=== PATIENT | female | born 1955 | race Caucasian/White ===

== ENCOUNTER 2017-02-06 04:40 | Emergency (ER) | payer OTHER ==
[~2017-02-06] VITALS: Ht 157.5 cm; Wt 95.2 kg
[~2017-02-06 04:40] MED LIST: OMEP20TA39 PO
[2017-02-06 04:47] VITALS: BP 126/63; PULSE 66; RESP 18; TEMP 97.5; O2SAT 94
[2017-02-06] MEDS ORDERED: IMIT50TA PO (04:57)
[2017-02-06] MEDS ORDERED: OMEP20TA PO (04:57)
[2017-02-06 04:59] VITALS: BP 126/63; PULSE 66; RESP 18; TEMP 97.5; O2SAT 97
[2017-02-06] MEDS ORDERED: SODIUM CHLORIDE 0.9% FLUSH 10 ML FLUSH IV FLUSH PRN (05:00)
[2017-02-06 05:01] VITALS: RESP 18; O2SAT 97
[2017-02-06] MEDS ORDERED: KETOROLAC TROMETHAMINE 30 MG/ML (IVP) VIAL IV PUSH ONE (05:15)
[2017-02-06 05:16] LABS: BLOOD, URINE NEG (NEG); GLUCOSE,URINE NEG (NEG); KETONE, URINE NEG (NEG); NITRITE,URINE NEG (NEG)
--- NOTE | 2017-02-06 05:17 | PD ---
HPI Chief Complaint: Flank/Kidney Pain Time Seen by Provider: 05:15 Travel History International Travel<30 days: No Contact w/Intl Traveler<30days: No Traveled to known affect area: No History of Present Illness HPI Patient 61-year-old female presents emergency Department with right flank pain. Patient states she has a history of an obstructing kidney stone and kidney failure and feels similar to this. Patient also states that she's been having the pain on and off for some couple of days now and she attributed to a cough and congestion when she is now over and straining of her muscles while she was coughing. She states that the pain was gradually getting worse and she decided to come in and be seen. She is not followed up with urologist in some time. No nausea no vomiting no diarrhea no blood in the stool. States symptoms been going on for couple days gradually worsening moderate in severity. PFSH Past Medical History Arthritis: Yes Autoimmune Disease: No Heart Rhythm Problems: Yes (MVP) Cancer: No Cardiovascular Problems: Yes High Cholesterol: Yes Cerebrovascular Accident: Yes Diminished Hearing: No Endocrine: Yes Gastrointestinal Disorders: No Genitourinary: Yes Immune Disorder: No Implanted Vascular Access Dvce: No Kidney Stones: Yes Musculoskeletal: Yes Neurologic: Yes Psychiatric: No Reproductive: No Respiratory: No Migraines: Yes Thyroid Disease: Yes (PARATHYROID) Tetanus Vaccination: Unknown Influenza Vaccination: No ?: Not Menopausal: Yes Past Surgical History Genitourinary Surgery: Yes (STENT FOR KIDNEY STONE) Other Surgery: Yes (PARATHYROID SX; KIDNEY STONE REMOVAL) Social History Alcohol Use: Yes (OCCAS) Tobacco Use: No Substance Use: No Allergies-Medications (Allergen,Severity, Reaction): Coded Allergies: Contrast Media (Verified Allergy, Severe, 02/06/17) Naprosyn (Verified Allergy, Severe, 02/06/17) Shellfish (Verified Allergy, Severe, 02/06/17) Aleve (Verified Allergy, Mild, Swelling, 02/06/17) name brand only not ibuprofen Fluconazole (Verified Allergy, Unknown, 02/06/17) Uncoded Allergies: BRAND NAME ADVIL (Allergy, Unknown, 02/17/08) LACTOSE INTOLERANT (Allergy, Unknown, 02/17/08) aspartame (Allergy, Unknown, 05/14/11) cethromycin (Allergy, Unknown, 05/14/11) Reported Meds & Prescriptions Reported Meds & Active Scripts Active Bentyl (Dicyclomine HCl) 10 Mg Cap 10 Mg PO TID PRN Miralax Powder (Polyethylene Glycol 3350 Powder) 17 Gm Powd 17 Gm PO DAILY 7 Days Mix and dissolve one measuring cap-ful (17 grams) in water or juice. Reported Imitrex (Sumatriptan Succinate) 50 Mg Tab 50 Mg PO ONCE PRN If a satisfactory response has not been obtained at 2 hours, a second dose may be administered Omeprazole 20 Mg Tab 20 Mg PO DAILY Review of Systems Except as stated in HPI: all other systems reviewed are Neg Physical Exam Narrative GENERAL: Well-developed well-nourished no apparent distress SKIN: Focused skin assessment warm/dry. HEAD: Atraumatic. Normocephalic. EYES: Pupils equal and round. No scleral icterus. No injection or drainage. ENT: No nasal bleeding or discharge. Mucous membranes pink and moist. NECK: Trachea midline. No JVD. CARDIOVASCULAR: Regular rate and rhythm. No murmur appreciated. RESPIRATORY: No accessory muscle use. Clear to auscultation. Breath sounds equal bilaterally. GASTROINTESTINAL: Abdomen soft, non-tender, nondistended. Hepatic and splenic margins not palpable. No CVA tenderness. No rebound no percussive tenderness. MUSCULOSKELETAL: No obvious deformities. No clubbing. No cyanosis. No edema. NEUROLOGICAL: Awake and alert. No obvious cranial nerve deficits. Motor grossly within normal limits. Normal speech. PSYCHIATRIC: Appropriate mood and affect; insight and judgment normal. Data Data Last Documented VS Vital Signs Date Time Temp Pulse Resp B/P Pulse Ox O2 Delivery O2 Flow Rate FiO2 02/06/17 06:33 18 02/06/17 06:20 72 124/68 98 Room Air 02/06/17 04:59 97.5 Orders Urinalysis - C+S If Indicated (02/06/17 04:50) Complete Blood Count With Diff (02/06/17 04:51) Comprehensive Metabolic Panel (02/06/17 04:51) Lipase (02/06/17 04:51) Iv Access Insert/Monitor (02/06/17 04:51) Ecg Monitoring (02/06/17 04:51) Oximetry (02/06/17 04:51) Sodium Chloride 0.9% Flush (Ns Flush) (02/06/17 05:00) Ketorolac Inj (Toradol Inj) (02/06/17 05:15) Sodium Chlor 0.9% 1000 Ml Inj (Ns 1000 M (02/06/17 05:30) Ct Abd/Pel W/O Iv Contrast (02/06/17 ) Labs Laboratory Tests Test 02/06/17 05:10 White Blood Count 8.9 TH/MM3 Red Blood Count 4.85 MIL/MM3 Hemoglobin 13.9 GM/DL Hematocrit 41.3 % Mean Corpuscular Volume 85.3 FL Mean Corpuscular Hemoglobin 28.6 PG Mean Corpuscular Hemoglobin 33.6 % Concent Red Cell Distribution Width 13.0 % Platelet Count 302 TH/MM3 Mean Platelet Volume 7.9 FL Neutrophils (%) (Auto) 58.2 % Lymphocytes (%) (Auto) 31.8 % Monocytes (%) (Auto) 6.6 % Eosinophils (%) (Auto) 2.7 % Basophils (%) (Auto) 0.7 % Neutrophils # (Auto) 5.2 TH/MM3 Lymphocytes # (Auto) 2.8 TH/MM3 Monocytes # (Auto) 0.6 TH/MM3 Eosinophils # (Auto) 0.2 TH/MM3 Basophils # (Auto) 0.1 TH/MM3 CBC Comment DIFF FINAL Differential Comment Urine Color YELLOW Urine Turbidity CLEAR Urine pH 6.0 Urine Specific [place] 1.015 Urine Protein NEG mg/dL Urine Glucose (UA) NEG mg/dL Urine Ketones NEG mg/dL Urine Occult Blood NEG Urine Nitrite NEG Urine Bilirubin NEG Urine Leukocyte Esterase SMALL Urine RBC 0-2 /hpf Urine WBC 6-8 /hpf Urine Squamous Epithelial 6-8 /hpf Cells Urine Bacteria OCC /hpf Microscopic Urinalysis Comment CULT NOT INDICATED Sodium Level 136 MEQ/L Potassium Level 4.0 MEQ/L Chloride Level 102 MEQ/L Carbon Dioxide Level 28.2 MEQ/L Anion Gap 6 MEQ/L Blood Urea Nitrogen 14 MG/DL Creatinine 0.77 MG/DL Estimat Glomerular Filtration 76 ML/MIN Rate Random Glucose 98 MG/DL Calcium Level 8.9 MG/DL Total Bilirubin 0.4 MG/DL Aspartate Amino Transf 21 U/L (AST/SGOT) Alanine Aminotransferase 29 U/L (ALT/SGPT) Alkaline Phosphatase 77 U/L Total Protein 7.4 GM/DL Albumin 3.5 GM/DL Lipase 288 U/L [facility] Medical Decision Making Medical Screen Exam Complete: Yes Emergency Medical Condition: Yes Differential Diagnosis Kidney stone, cholecystitis unlikely, acute abdomen is excluded clinically, acute kidney injury, muscular strain. Narrative Course Patient was roomed in emergency department, appears quite comfortable, abdomen was benign. Given her medical history is prudent to check a CAT scan at this time to ascertain if there is any kidney stones. Last 24 hours Impressions Abdomen/Pelvis CT 02/06/17 0000 Signed Impressions: Service Date/Time: Monday, February 06, 2017 05:25 - CONCLUSION: 1. The kidneys , ureters and bladder are unremarkable with no renal calculi or obstruction. 2. Multiple calcified leiomyomata. Mickey Ram MD Patient's labs reviewed and no urinary tract infection kidney function is normal. Patient was given Toradol and started to feel better. There is a fair amount of stool in her right-sided colon may be contributory to her symptoms. Discussed that while no definitive cause of her pain has been elicited seems more musculoskeletal this time. Discussed need for follow-up with her primary care physician. She is stable for discharge at this time. Diagnosis Primary Impression: Right flank pain Additional Impression: Constipation Additional Instructions: Recommended trying MiraLAX [id number], follow-up with her primary care physician as soon as possible. Med/Other Pt SpecificInfo: Prescription(s) given Scripts Dicyclomine (Bentyl)10 Mg Cap10 Mg PO TID PRN (Bowel Management) #20 CAP Ref 0 Prov:Shawn Etienne MD 02/06/17 Polyethylene Glycol 3350 Powder (Miralax Powder)17 Gm Powd17 Gm PO DAILY 7 Days Ref 0 Mix and dissolve one measuring cap-ful (17 grams) in water or juice. Prov:Shawn Etienne MD 02/06/17 Disposition: 01 DISCHARGE HOME Condition: Stable Shawn Etienne MD Feb 06, 2017 05:17
[2017-02-06 05:19] LABS: AUTOMATED NEUTROPHIL # 5.2 TH/MM3 (1.8-7.7); BASOPHIL # 0.1 TH/MM3 (0-0.2); BASOPHIL % 0.7 % (0.0-2.0); EOSINOPHIL # 0.2 TH/MM3 (0-0.4); EOSINOPHIL % 2.7 % (0.0-4.0); HEMATOCRIT 41.3 % (35.0-46.0); HEMO FLAGS DIFF FINAL; LYMPH % 31.8 % (9.0-44.0); LYMPHOCYTE # 2.8 TH/MM3 (1.0-4.8); MEAN CELL VOLUME 85.3 FL (80.0-100.0); MEAN CORPUSCULAR HEMOGLOBIN 28.6 PG (27.0-34.0); MEAN CORPUSCULAR HGB CONC 33.6 % (32.0-36.0); MONO % 6.6 % (0.0-8.0); NEUT % 58.2 % (16.0-70.0); PLATELET COUNT 302 TH/MM3 (150-450); RED BLOOD COUNT 4.85 MIL/MM3 (4.00-5.30); WHITE BLOOD COUNT 8.9 TH/MM3 (4.0-11.0)
[2017-02-06 05:28] LABS: CHLORIDE 102 MEQ/L (98-107); SODIUM (NA) 136 MEQ/L (136-145)
[2017-02-06] MEDS ORDERED: SODIUM CHLOR 0.9% 1000 ML INJ 1,000 ML IV ONE (05:30)
[2017-02-06 05:32] LABS: ANION GAP 6 MEQ/L (5-15); BICARBONATE 28.2 MEQ/L (21.0-32.0); BLOOD UREA NITROGEN 14 MG/DL (7-18)
[2017-02-06 05:35] LABS: ALT (GPT) 29 U/L (10-53); AST (GOT) 21 U/L (15-37); GLOMERULAR FILTRATION RATE 76 ML/MIN (>89)
[2017-02-06 05:36] LABS: TOTAL BILIRUBIN ADULT 0.4 MG/DL (0.2-1.0)
[2017-02-06 05:38] LABS: ALKALINE PHOSPHATASE 77 U/L (45-117)
[2017-02-06 05:41] LABS: URINE COLOR YELLOW (YELLW/STRAW)
[2017-02-06 05:42] LABS: BACTERIA, URINE OCC /hpf; COMMENT (UR) CULT NOT INDICATED; CULTURE IF INDICATED CULT NOT INDICATED; RBC, URINE 0-2 /hpf (0-3)
--- NOTE | 2017-02-06 05:51 | RADHPO ---
EXAM DATE/TIME: 02/06/2017 05:25 [facility] COMPARISON: No previous studies available for comparison. INDICATIONS : Right flank pain past 2 days. ORAL CONTRAST: No oral contrast ingested. RADIATION DOSE: 31.11 CTDIvol (mGy) MEDICAL HISTORY : Cerebrovascular disease. Cardiovascular disease Renal calculi. SURGICAL HISTORY : Renal stents ENCOUNTER: Initial ACUITY: 2 days PAIN SCALE: 8/10 LOCATION: Right flank TECHNIQUE: Volumetric scanning of the abdomen and pelvis was performed. Using automated exposure control and ad justment of the mA and/or kV according to patient size, radiation dose was kept as low as reasonably achievable to obtain optimal diagnostic quality images. FINDINGS: LOWER LUNGS: The visualized lower lungs are clear. LIVER: Homogeneous density without lesion. There is no dilation of the biliary tree. No calcified gallston es. SPLEEN: Normal size without lesion. PANCREAS: Within normal limits. KIDNEYS: Normal in size and shape. There is no mass, stone, or hydronephrosis. ADRENAL GLANDS: Within normal limits. VASCULAR: There is no aortic aneurysm. BOWEL/MESENTERY: The stomach, small bowel, and colon demonstrate no acute abnormality. There is no free intraperitone al air or fluid. ABDOMINAL WALL: Within normal limits. RETROPERITONEUM: There is no lymphadenopathy. BLADDER: No wall thickening or mass. REPRODUCTIVE: W there are multiple calcified leiomyomata. INGUINAL: There is no lymphadenopathy or hernia. MUSCULOSKELETAL: Within normal limits for patient age. CONCLUSION: 1. The kidneys, ureters and bladder are unremarkable with no renal calculi or obstruction. 2. Multiple calcified leiomyomata. Mickey Ram MD on February 06, 2017 at 5:48 Board Certified Radiologist. This report was verified electronically.
[2017-02-06 06:20] VITALS: BP 124/68; PULSE 72; RESP 18; O2SAT 98
[2017-02-06] MEDS ORDERED: DICY10 PO (06:23)
[2017-02-06] MEDS ORDERED: MIRA3350 PO (06:23)
== END 2017-02-06 06:37 | disposition home or self-care (01) ==
LOC: PHED 04:40
DX: R10.9 Unspecified abdominal pain (principal); K59.00 Constipation, unspecified; R05 Cough; E07.9 Disorder of thyroid, unspecified; E78.00 Pure hypercholesterolemia, unspecified; Z87.448 Personal history of other diseases of urinary system; Z87.39 Personal history of other diseases of the musculoskeletal system and connective tissue; Z86.79 Personal history of other diseases of the circulatory system; Z86.69 Personal history of other diseases of the nervous system and sense organs
CPT/HCPCS: 74176; 80053; 81001; 83690; 85025; 96361; 96374; 99285; J1885; J7030